=== PATIENT | male | born 1955 | race Caucasian/White ===

== ENCOUNTER → 2019-01-24 | Emergency (ER) | payer MEDICAID ==
[~2019-01-24] VITALS: Ht 170.2 cm; Wt 96.6 kg
[2019-01-24 20:34] VITALS: BP_SYST 126
--- NOTE | 2019-01-24 20:39 | NUR ---
Pt placed to ER waiting room with in stable condition. Airway patent, no respiratory distress.
--- NOTE | 2019-01-24 22:00 | NUR ---
Pt seen by admitting leave ER in stable condition. LWBS.
[2019-01-25 18:21] VITALS: BP_SYST 126
== END | disposition still patient (30) ==
LOC: SED 19:51
DX: S40.262A Insect bite (nonvenomous) of left shoulder, initial encounter (principal); S40.261A Insect bite (nonvenomous) of right shoulder, initial encounter; S80.262A Insect bite (nonvenomous), left knee, initial encounter; S30.860A Insect bite (nonvenomous) of lower back and pelvis, initial encounter; Z53.21 Procedure and treatment not carried out due to patient leaving prior to being seen by health care provider; W57.XXXA Bitten or stung by nonvenomous insect and other nonvenomous arthropods, initial encounter; Y93.89 Activity, other specified; Y92.89 Other specified places as the place of occurrence of the external cause; Y99.8 Other external cause status